=== PATIENT | female | born 1965 | race Caucasian/White ===

== ENCOUNTER 2017-05-05 23:05 | Emergency (ER) | payer SELFPAY ==
[~2017-05-05] VITALS: Ht 157.5 cm; Wt 73.0 kg
[~2017-05-05 23:05] MED LIST: ADLT ASA LOW81 MG PO; FERR SULFATE325 MG PO; MEDDOSEPAK PO; MULTI VIT PO; NAPROSYN500 MG OR; NAPROSYN500 MG PO; NORCO1 TA1 PO; PROAIR HFA IN; PROTONIX40 M2 PO; PROVENTIL HFA IN; QC IBUPROFEN200 MG OR; TORADOL PO; ULTRAM50 MG PO
[2017-05-05] MEDS ORDERED: PROAIR HFA IN (23:18)
[2017-05-05] MEDS ORDERED: AMITRIPTYLIN25 MG PO (23:19)
[2017-05-06 01:00] LABS: URINE BILIRUBIN - DIPSTICK NEGATIVE (NEGATIVE); URINE BLOOD DIPSTICK NEGATIVE (NEGATIVE); URINE CLARITY CLEAR; URINE COLOR YELLOW; URINE GLUCOSE - DIPSTICK NEGATIVE (NEGATIVE); URINE KETONE NEGATIVE (NEGATIVE); URINE LEUK ESTERASE NEGATIVE (NEGATIVE); URINE NITRITE - DIPSTICK NEGATIVE (Negative); URINE PH 6.5 (4.5-8.0); URINE PROTEIN - DIPSTICK NEGATIVE (NEG-TRACE); URINE SPECIFIC GRAVITY 1.015; URINE UROBILINOGEN - DIPSTICK 0.2 E.U./dL (0.2)
[2017-05-06] MEDS ORDERED: PERCOCET 5/325M1 TAB PO (02:38)
[2017-05-06] MEDS ORDERED: ORPHENADRINE C100 M1 PO (02:38)
[2017-05-06 03:39] VITALS: BP 143/81
== END 2017-05-06 03:38 | disposition home or self-care (01) | DRG 552 ==
LOC: ED 23:05
PROVIDERS: Emergency Medicine
DX: M51.36 Other intervertebral disc degeneration, lumbar region (principal); I10 Essential (primary) hypertension; E78.5 Hyperlipidemia, unspecified; J44.9 Chronic obstructive pulmonary disease, unspecified; F32.9 Major depressive disorder, single episode, unspecified; F41.9 Anxiety disorder, unspecified

== ENCOUNTER 2017-07-08 22:15 | Emergency (ER) | payer SELFPAY ==
[~2017-07-08] VITALS: Ht 157.5 cm; Wt 71.4 kg
[~2017-07-08 22:15] MED LIST changes: +AMITRIPTYLIN25 MG PO; +ORPHENADRINE C100 M1 PO; +PERCOCET 5/325M1 TAB PO
[2017-07-08 23:23] LABS: URINE BILIRUBIN - DIPSTICK NEGATIVE (NEGATIVE); URINE BLOOD DIPSTICK NEGATIVE (NEGATIVE); URINE CLARITY SLIGHT CLOUDY; URINE COLOR YELLOW; URINE GLUCOSE - DIPSTICK NEGATIVE (NEGATIVE); URINE KETONE NEGATIVE (NEGATIVE); URINE LEUK ESTERASE NEGATIVE (NEGATIVE); URINE NITRITE - DIPSTICK NEGATIVE (Negative); URINE PROTEIN - DIPSTICK NEGATIVE (NEG-TRACE); URINE SPECIFIC GRAVITY 1.015; URINE UROBILINOGEN - DIPSTICK 0.2 E.U./dL (0.2)
[2017-07-09 00:04] LABS: HEMATOCRIT 39.2 % (37.0-47.0); IMMATURE GRANULOCYTES 0.1 % (0.0-1.0); MEAN CELL VOLUME 84.8 fL CALC (80.0-100.0); MEAN CORPUSCULAR HGB CONC 30.6 g/L CALC (32.0-36.0); RED BLOOD COUNT 4.62 mill/uL (4.20-5.60)
[2017-07-09 00:19] LABS: ALBUMIN 4.5 g/dL (3.2-5.0); ALKALINE PHOSPHATASE 188 u/l (38-126); AMYLASE 95 u/l (30-110); ANION GAP 18 (6-22 (CALC)); BILIRUBIN, TOTAL 0.5 mg/dL (0.0-1.4); BUN 12 mg/dL (7-17); BUN/CREATININE RATIO 16 (12-20 (CALC)); CALCIUM 9.6 mg/dL (8.4-10.2); CARBON DIOXIDE 25 mmol/l (22-30); CHLORIDE 105 mmol/l (95-108); CREATININE 0.8 mg/dL (0.5-1.0); GFR > 60 ML/MIN (>=60 (CALC)); GFR FOR AFR.AMER. > 60 ML/MIN (>=60 (CALC)); GLUCOSE 101 mg/dL (65-105); LIPASE 74 u/l (23-300); POTASSIUM 3.8 mmol/l (3.5-5.1); SGOT/AST 71 u/l (14-36); SGPT/ALT 114 u/l (9-52); SODIUM 144 mmol/l (137-146); TOTAL PROTEIN 7.7 g/dL (6.3-8.2)
[2017-07-09] MEDS ORDERED: SW OMEPRAZOLE20 MG PO (00:20)
[2017-07-09 00:30] LABS: MYOGLOBIN 34 ng/mL (0 - 62)
[2017-07-09 04:05] VITALS: BP 133/80
== END 2017-07-09 04:19 | disposition home or self-care (01) | DRG 313 ==
LOC: ED 22:15
PROVIDERS: Emergency Medicine
DX: R07.9 Chest pain, unspecified (principal); I10 Essential (primary) hypertension; F32.9 Major depressive disorder, single episode, unspecified; J44.9 Chronic obstructive pulmonary disease, unspecified; E78.5 Hyperlipidemia, unspecified; F41.9 Anxiety disorder, unspecified

== ENCOUNTER 2018-09-16 17:51 | Emergency (ER) | payer SELFPAY ==
[~2018-09-16] VITALS: Ht 157.5 cm; Wt 67.3 kg
[~2018-09-16 17:51] MED LIST changes: +SW OMEPRAZOLE20 MG PO
[2018-09-16] MEDS ORDERED: TESSALON PERLE100 MG PO (18:24)
[2018-09-16] MEDS ORDERED: PREDNISONE20 MG PO (18:24)
[2018-09-16 18:30] VITALS: BP 148/87
== END 2018-09-16 18:30 | disposition home or self-care (01) | DRG 204 ==
LOC: ED 17:51
DX: R05 Cough (principal)

== ENCOUNTER 2019-10-02 | Emergency (ER) | payer SELFPAY ==
[~2019-10-02] MED LIST changes: +PREDNISONE20 MG PO; +TESSALON PERLE100 MG PO
[2019-10-02 14:07] LABS: ALBUMIN 4.7 g/dL (3.2-5.0); ALKALINE PHOSPHATASE 166 u/l (38-126); AMYLASE 88 u/l (30-110); ANION GAP 15 (6-22 (CALC)); BILIRUBIN, TOTAL 0.6 mg/dL (0.0-1.4); BUN 13 mg/dL (7-17); BUN/CREATININE RATIO 20 (12-20 (CALC)); CARBON DIOXIDE 26 mmol/l (22-30); CHLORIDE 102 mmol/l (95-108); CREATININE 0.7 mg/dL (0.5-1.0); GFR > 60 ML/MIN (>=60 (CALC)); GFR FOR AFR.AMER. > 60 ML/MIN (>=60 (CALC)); LIPASE 75 u/l (23-300); POTASSIUM 4.4 mmol/l (3.5-5.1); SGOT/AST 42 u/l (14-36); SODIUM 138 mmol/l (137-146); TOTAL PROTEIN 8.4 g/dL (6.3-8.2)
[2019-10-02 14:42] LABS: HEMATOCRIT 41.6 % (37.0-47.0); HEMOGLOBIN 11.4 g/dl (12.0-16.0); IMMATURE GRANULOCYTES 0.3 % (0.0-5.0); MEAN CELL VOLUME 81.7 fL CALC (80.0-100.0); MEAN CORPUSCULAR HGB 22.4 pG CALC (26.0-32.0); MEAN CORPUSCULAR HGB CONC 27.4 g/L CALC (32.0-36.0); NEUT# 5.96 thou/uL (2.00-7.15); RED BLOOD COUNT 5.09 mill/uL (4.20-5.60); RED CELL DISTRI WIDTH 15.7 % (11.5-15.5)
== END 2019-10-02 16:16 | disposition home or self-care (01) | DRG 392 ==
DX: R10.11 Right upper quadrant pain (principal); I10 Essential (primary) hypertension
CPT/HCPCS: Q9967

== ENCOUNTER 2022-07-18 07:01 | Emergency (ER) | payer SELFPAY ==
[~2022-07-18] VITALS: Ht 157.5 cm; Wt 65.9 kg
[2022-07-18 07:28] VITALS: BP 157/93
[2022-07-18 07:30] VITALS: BP 142/97
[2022-07-18] MEDS ORDERED: OMEPRAZOLE DR20 MG PO (07:33)
[2022-07-18 08:00] VITALS: BP 157/94
[2022-07-18 08:04] LABS: HEMATOCRIT 44.8 % (37.0-47.0); HEMOGLOBIN 13.3 g/dl (12.0-16.0); IMMATURE GRANULOCYTES 0.2 % (0.0-5.0); MEAN CELL VOLUME 83.3 fL CALC (80.0-100.0); MEAN CORPUSCULAR HGB 24.7 pG CALC (26.0-32.0); MEAN CORPUSCULAR HGB CONC 29.7 g/dL CAL (32.0-36.0); NEUT# 6.67 thou/uL (2.00-7.15); RED BLOOD COUNT 5.38 mill/uL (4.20-5.60); RED CELL DISTRI WIDTH 14.1 % (11.5-15.5)
[2022-07-18 08:05] LABS: URINE BILIRUBIN - DIPSTICK NEGATIVE (NEGATIVE); URINE BLOOD DIPSTICK NEGATIVE (NEGATIVE); URINE COLOR YELLOW; URINE GLUCOSE - DIPSTICK NEGATIVE (NEGATIVE); URINE KETONE NEGATIVE (NEGATIVE); URINE PROTEIN - DIPSTICK NEGATIVE (NEG-TRACE); URINE UROBILINOGEN - DIPSTICK 0.2 E.U./dL (0.2)
[2022-07-18 08:07] LABS: URINE LEUK ESTERASE SMALL (NEGATIVE); URINE NITRITE - DIPSTICK NEGATIVE (Negative)
[2022-07-18 08:14] LABS: URINE SQUAMOUS EPITHELIAL CELL FEW EPI/hpf (0-FEW)
[2022-07-18 08:15] VITALS: BP 123/90
[2022-07-18 08:15] LABS: URINE BACTERIA FEW hpf; URINE WBC 0-2 WBC/hpf (0-5)
[2022-07-18 08:24] LABS: ALBUMIN 4.5 g/dL (3.2-5.0); ALKALINE PHOSPHATASE 138 u/l (38-126); ANION GAP 11 (6-22 (CALC)); BUN 10 mg/dL (7-17); BUN/CREATININE RATIO 14 (12-20 (CALC)); CARBON DIOXIDE 28 mmol/l (22-30); CHLORIDE 105 mmol/l (95-108); CREATININE 0.7 mg/dL (0.5-1.0); GFR FOR AFR.AMER. > 60 ML/MIN (>=60 (CALC)); GFR OTHER RACES > 60 ML/MIN (>=60 (CALC)); LIPASE 60 u/l (23-300); POTASSIUM 4.4 mmol/l (3.5-5.1); SGOT/AST 34 u/l (14-36); SODIUM 140 mmol/l (137-146)
[2022-07-18 08:28] LABS: BILIRUBIN, TOTAL 0.9 mg/dL (0.0-1.4)
[2022-07-18 08:30] VITALS: BP 129/87
[2022-07-18 09:42] VITALS: BP 129/87
== END 2022-07-18 10:07 | disposition home or self-care (01) | DRG 392 ==
LOC: ED 07:01
PROVIDERS: Internal Medicine
DX: R10.9 Unspecified abdominal pain (principal); K44.9 Diaphragmatic hernia without obstruction or gangrene; K76.9 Liver disease, unspecified; R16.0 Hepatomegaly, not elsewhere classified; I10 Essential (primary) hypertension
CPT/HCPCS: Q9967

== ENCOUNTER 2022-11-20 20:12 | Emergency (ER) | payer SELFPAY ==
[~2022-11-20] VITALS: Ht 157.5 cm; Wt 62.0 kg
[~2022-11-20 20:12] MED LIST changes: +OMEPRAZOLE DR20 MG PO
[2022-11-20 20:21] VITALS: BP 161/96
[2022-11-20 20:30] VITALS: BP 139/87
[2022-11-20 20:47] LABS: BASO% 0.8 % (0-3); EOS% 1.1 % (0-8); LYMPH% 20.6 % (15-41); MEAN CELL VOLUME 80.2 fL CALC (80.0-100.0); MEAN CORPUSCULAR HGB 23.3 pG CALC (26.0-32.0); MONO% 7.6 % (2-13); NEUT# 5.31 thou/uL (2.00-7.15); NEUT% 69.9 % (42-76); RED BLOOD COUNT 4.81 mill/uL (4.20-5.60)
[2022-11-20 20:48] LABS: HEMATOCRIT 38.6 % (37.0-47.0); HEMOGLOBIN 11.2 g/dl (12.0-16.0)
[2022-11-20 21:00] VITALS: BP 150/102
[2022-11-20 21:15] VITALS: BP 141/81
[2022-11-20 21:30] VITALS: BP 129/83
[2022-11-20] MEDS ORDERED: PREDNISONE50 MG PO (21:33)
[2022-11-20] MEDS ORDERED: VENTOLIN HFA IN (21:33)
[2022-11-20 21:34] VITALS: BP 129/83
== END 2022-11-20 21:50 | disposition home or self-care (01) | DRG 153 ==
LOC: ED 20:12
PROVIDERS: Family Medicine
DX: J06.9 Acute upper respiratory infection, unspecified (principal); I10 Essential (primary) hypertension; K21.9 Gastro-esophageal reflux disease without esophagitis; Z20.822 Contact with and (suspected) exposure to COVID-19

== ENCOUNTER 2023-03-25 22:54 | Emergency (ER) | payer SELFPAY ==
[~2023-03-25] VITALS: Ht 157.5 cm; Wt 63.5 kg
[~2023-03-25 22:54] MED LIST changes: +PREDNISONE50 MG PO; +VENTOLIN HFA IN
[2023-03-25 23:08] VITALS: BP 166/91
[2023-03-25 23:15] VITALS: BP 149/88
[2023-03-25 23:30] VITALS: BP 133/82
[2023-03-25 23:45] VITALS: BP 129/74
[2023-03-26] VITALS (7 sets, daily range): BP systolic 107–132; BP diastolic 69–84
[2023-03-26] MEDS ORDERED: ORPHENADRINE100 MG PO (01:14)
[2023-03-26] MEDS ORDERED: TORADOL PO (01:14)
== END 2023-03-26 01:35 | disposition home or self-care (01) | DRG 552 ==
LOC: ED 22:54
DX: M54.50 Low back pain, unspecified (principal); I10 Essential (primary) hypertension; K21.9 Gastro-esophageal reflux disease without esophagitis

== ENCOUNTER 2023-05-21 19:00 | Emergency (ER) | payer SELFPAY ==
[~2023-05-21] VITALS: Ht 157.5 cm; Wt 63.0 kg
[2023-05-21] VITALS (16 sets, daily range): BP systolic 124–163; BP diastolic 69–95
[~2023-05-21 19:00] MED LIST changes: +ORPHENADRINE100 MG PO
[2023-05-21 19:47] LABS: EOS% 1.5 % (0-8); HEMATOCRIT 34.9 % (37.0-47.0); HEMOGLOBIN 9.5 g/dl (12.0-16.0); IMMATURE GRANULOCYTES 0.1 % (0.0-5.0); LYMPH% 27.7 % (15-41); MEAN CORPUSCULAR HGB 19.9 pG CALC (26.0-32.0); MEAN CORPUSCULAR HGB CONC 27.2 g/dL CAL (32.0-36.0); MONO% 10.1 % (2-13); NEUT# 4.67 thou/uL (2.00-7.15); NEUT% 59.6 % (42-76); RED BLOOD COUNT 4.77 mill/uL (4.20-5.60); RED CELL DISTRI WIDTH 15.9 % (11.5-15.5)
[2023-05-21 19:50] LABS: MEAN CELL VOLUME 73.2 fL CALC (80.0-100.0)
[2023-05-21 19:59] LABS: ALBUMIN 4.6 g/dL (3.2-5.0); ALKALINE PHOSPHATASE 126 u/l (38-126); ANION GAP 11 (6-22 (CALC)); BUN 14 mg/dL (7-17); BUN/CREATININE RATIO 17 (12-20 (CALC)); CARBON DIOXIDE 28 mmol/l (22-30); CHLORIDE 104 mmol/l (95-108); CREATININE 0.8 mg/dL (0.5-1.0); GFR FOR AFR.AMER. > 60 ML/MIN (>=60 (CALC)); GFR OTHER RACES > 60 ML/MIN (>=60 (CALC)); POTASSIUM 3.7 mmol/l (3.5-5.1); SGOT/AST 33 u/l (14-36); SODIUM 139 mmol/l (137-146); TOTAL PROTEIN 7.6 g/dL (6.3-8.2)
[2023-05-21 20:06] LABS: BILIRUBIN, TOTAL 0.5 mg/dL (0.02-1.3)
[2023-05-21 21:00] LABS: URINE BILIRUBIN - DIPSTICK Negative (NEGATIVE); URINE BLOOD DIPSTICK Negative (NEGATIVE); URINE GLUCOSE - DIPSTICK Negative (NEGATIVE); URINE KETONE Negative (NEGATIVE); URINE NITRITE - DIPSTICK Negative (Negative); URINE PROTEIN - DIPSTICK Negative (NEG-TRACE); URINE SPECIFIC GRAVITY 1.015; URINE UROBILINOGEN - DIPSTICK 0.2 E.U./dL (0.2)
[2023-05-21 21:12] LABS: URINE COLOR Yellow; URINE LEUK ESTERASE Small (NEGATIVE); URINE RBC 0-2 RBC/hpf (0-5); URINE SQUAMOUS EPITHELIAL CELL FEW EPI/hpf (0-FEW)
[2023-05-21] MEDS ORDERED: LORTAB 1010 MG PO (22:36)
== END 2023-05-21 23:38 | disposition home or self-care (01) | DRG 392 ==
LOC: ED 19:00
PROVIDERS: Emergency Medicine
DX: K44.9 Diaphragmatic hernia without obstruction or gangrene (principal); I10 Essential (primary) hypertension; K21.9 Gastro-esophageal reflux disease without esophagitis
CPT/HCPCS: Q9967

== ENCOUNTER 2024-08-13 11:40 | Emergency (ER) | payer SELFPAY ==
[~2024-08-13] VITALS: Ht 160 cm; Wt 54.0 kg
[~2024-08-13 11:40] MED LIST changes: +COLACE100 MG PO; +IRON28 M1 PO; +LORTAB 1010 MG PO; +ONDANSETRON4 MG PO; +PREVACID15 M1 PO; +PROMETHAZINE HY25 M1 PO; +REGLAN10 MG PO; +TRAMADOL HCL50 MG PO; +[UNRECOGNIZED DRUG - OTHER]
[2024-08-13 11:46] VITALS: BP 148/89
[2024-08-13 12:01] VITALS: BP 121/75
[2024-08-13] MEDS ORDERED: DEXAMETHASONE SOD. PHOSPHATE 10 MG/ML VIAL IM ONE (12:25)
[2024-08-13] MEDS ORDERED: ORPHENADRINE CITRATE 30 MG/ML AMP IM ONE (12:25)
[2024-08-13 12:30] VITALS: BP 129/79
[2024-08-13] MEDS ORDERED: HYDROcodone 5 MG/Acetaminophen 325 MG/COMBO PO ONE (12:35)
[2024-08-13 13:05] VITALS: BP 147/82
[2024-08-13] MEDS ORDERED: PREDNISONE10 MG PO (13:52)
[2024-08-13] MEDS ORDERED: CYCLOBENZAPRINE10 MG PO (13:52)
[2024-08-13] MEDS ORDERED: DICLOFENAC SODIUM2 % TD (13:52)
[2024-08-13] MEDS ORDERED: TRAMADOL HYDROC50 M1 PO (13:52)
[2024-08-13 13:56] LABS: URINE BLOOD DIPSTICK Negative (NEGATIVE); URINE GLUCOSE - DIPSTICK Negative (NEGATIVE); URINE KETONE Trace mg/dL (NEGATIVE); URINE LEUK ESTERASE Negative (NEGATIVE); URINE NITRITE - DIPSTICK Negative (Negative); URINE PROTEIN - DIPSTICK 30 mg/dL (NEG-TRACE); URINE SPECIFIC GRAVITY 1.025; URINE UROBILINOGEN - DIPSTICK 0.2 E.U./dL (0.2)
[2024-08-13 14:01] LABS: URINE COLOR Dark yellow
[2024-08-13 14:05] VITALS: BP 147/82
[2024-08-13 14:12] LABS: URINE BACTERIA FEW hpf; URINE RBC 0-2 RBC/hpf (0-5); URINE WBC 0-2 WBC/hpf (0-5)
[2024-08-13 14:13] LABS: URINE MUCUS MODERATE hpf (NONE-FEW); URINE SQUAMOUS EPITHELIAL CELL FEW EPI/hpf (0-FEW)
[2024-08-13 14:14] LABS: URINE HYALINE CAST FEW lpf (NONE-RARE)
== END 2024-08-13 14:47 | disposition home or self-care (01) | DRG 552 ==
LOC: ED 11:40
PROVIDERS: Nurse Practitioner
DX: M54.6 Pain in thoracic spine (principal); M54.50 Low back pain, unspecified; M54.2 Cervicalgia; J44.9 Chronic obstructive pulmonary disease, unspecified; I10 Essential (primary) hypertension
CPT/HCPCS: J1100; J2360